=== PATIENT | female | born 1965 | race Two or more races ===

== ENCOUNTER 2020-01-01 09:12 | Emergency (ER) | payer OTHER ==
[~2020-01-01] VITALS: Ht 167.6 cm; Wt 72.6 kg
[2020-01-01] MEDS ORDERED: METHOCARBAMOL 500 MG TAB PO ONE (12:00)
[2020-01-01] MEDS ORDERED: ONDANSETRON ODT 4 MG TAB PO ONE (12:00)
[2020-01-01] MEDS ORDERED: KETOROLAC TROMETH 60MG/2ML VIAL IM ONE (12:00)
[2020-01-01 12:30] VITALS: BP 120/83
== END 2020-01-01 12:43 | disposition home or self-care (01) ==
LOC: ER 09:12 → EDBD 09:12 → ER 12:43
DX: R51.9 Headache, unspecified (principal)
CPT/HCPCS: 70450; 96372; 99284; J1885; Q0162

== ENCOUNTER → 2021-05-01 | Outpatient (CLI) | payer MEDICARE ==
[2021-05-01 11:48] LABS: Follicle Stimulating Hormone 16.11 IU/L (SEE BELOW); Leuteinizing Hormone 13.8 IU/L
== END | disposition home or self-care (01) ==
LOC: LAB 10:23
PROVIDERS: ATTEND Obstetrics & Gynecology
DX: N95.1 Menopausal and female climacteric states (principal); N39.0 Urinary tract infection, site not specified
CPT/HCPCS: 36415; 82670; 83001; 83002; 84403; 84443; 87086; 87088; 87186

== ENCOUNTER 2023-10-31 10:23 | Emergency (ER) | payer MEDICARE ==
[~2023-10-31] VITALS: Ht 162.6 cm; Wt 97.1 kg
[2023-10-31 11:04] VITALS: BP 119/74; PULSE 84; RESP 16; TEMP 97.8; O2SAT 98
[2023-10-31] MEDS ORDERED: ERY05OO OP (12:16)
[2023-10-31] MEDS ORDERED: AUG875T PO (12:16)
[2023-10-31] MEDS ORDERED: AZIT-43 PO (12:16)
[2023-10-31] MEDS: cefTRIAXone SOD 1,000 MG VL IM ONE (12:34)
== END 2023-10-31 12:47 | disposition home or self-care (01) ==
LOC: ER 10:23
DX: J40 Bronchitis, not specified as acute or chronic (principal); H10.9 Unspecified conjunctivitis; Z86.73 Personal history of transient ischemic attack (TIA), and cerebral infarction without residual deficits
CPT/HCPCS: 96372; 99283; J0696

== ENCOUNTER 2024-12-06 21:57 | Emergency (ER) | payer MEDICARE ==
[~2024-12-06] VITALS: Ht 160 cm; Wt 100.1 kg
[~2024-12-06 21:57] MED LIST: AUG875T PO; AZIT-43 PO; ERY05OO OP
[2024-12-06 23:15] LABS: Hematocrit 40.6 % (36.0-46.0); Hemoglobin 13.5 g/dL (12.2-16.2); Mean Corpuscular Hemoglobin 29.5 pg (28.0-32.0); Mean Corpuscular Volume 88.5 fL (80.0-100.0); Nucleated Red Blood Cells % 0.1 %
[2024-12-06 23:34] LABS: Alanine Aminotransferase 32 U/L (7-40); Albumin 4.3 g/dL (3.2-4.8); Alkaline Phosphatase 97 U/L (46-116); Anion Gap 9 (5-15); BUN/Creatinine Ratio 7.9 (10.0-20.0); Bilirubin, Total 0.6 mg/dL (0.2-1.0); Blood Urea Nitrogen 6 mg/dL (9-23); Calcium 9.3 mg/dL (8.7-10.4); Carbon Dioxide 24 mmol/L (20-31); Chloride 106 mmol/L (98-107); Glucose 122 mg/dL (74-106); Potassium 4.1 mmol/L (3.5-5.1); Sodium 139 mmol/L (136-145); Total Protein 7.3 g/dL (5.7-8.2)
--- NOTE | 2024-12-06 23:34 | DVH ---
Procedure: US PELVIC 12/06/2024 10:39 PM Indication: vag bleed pelvic pain Comparison: None Technique: Real-time grayscale and color images were obtained. FINDINGS: UTERUS: Anteverted, measuring 13.4 x 5.9 x 4.7 cm in length. There are multiple uterine fibroids, t he largest of which measures 4.2 cm. A calcified uterine fibroid is seen measuring up to 2.9 cm. ENDOMETRIAL STRIPE: 4 cm in thickness. Homogenous echotexture. No fluid in the endometrial canal. RIGH OVARY: Not visualized LEFT OVARY: Not visualized. CUL-DE-SAC: No significant fluid noted. OTHER: None. IMPRESSION: 1. Enlarged heterogeneous uterus with multiple fibroids. 2. The ovaries are not visualized.
--- NOTE | 2024-12-07 00:17 | ED.PDOC ---
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 Patient states she began experiencing vaginal bleeding earlier today, was checking pad every hour, had a spot of blood. Patient states she is also experiencing low back pain and suprapubic discomfort. Last OBGYN visit was about 1 year ago, had pap smear, negative results. Patient states she is compliant with hypertension medication, not complaint with HLD medication. Denies fever, chills, headache, dizziness, numbness/tingling, chest pain. No other symptoms or modifying factors present at this time. Initial Vitals BP: 137/79 HR: 82 RR: 18 O2: 93% Temp: 97.7 F Past Medical History: CVA, ovarian cyst, HTN, HLD Past Surgical History: Denies Social History: Denies ETOH, smoking, and drug use. Medications: unknown Allergies: NKDA SHIMKO: HPI: Poor Historian. Patient denies any pelvic pain or abdominal pain. Past Medical History: Past Surgical History: REVIEW OF SYSTEMS: CONSTITUTIONAL: Denies acute: fever, diaphoresis, chills, generalized weakness. HEAD: Denies acute: headache, photophobia Eyes: Denies acute: Double vision, vision loss, eye pain, eye discharge. EARS: Denies acute: tinnitus, hearing loss, ear discharge, ear pain, THROAT: Denies acute: sore throat, swelling, difficulty swallowing , pain with swallowing, change in voice. NECK: Denies acute: neck pain, neck swelling, stiff neck. HEART: Denies acute : chest pain, palpitations, LUNGS: Denies acute: SOB, wheezing, cough, hemoptysis ABDOMEN: Denies acute: abdominal pain, Nausea, Vomiting, diarrhea, melena , hematemesis, hematochezia SKIN: Denies acute: rash, redness, lesions, itchiness. EXTREMITIES: Denies acute: calf pain, numbness, tingling, weakness, denies pain in extremity. Denies acute: Low back pain. Neuro: Denies acute: focal neurological deficit, motor or sensory focal neurological deficit, tremors, seizure like activity, confusion, dizziness, change in mental status, loss of bowel or bladder function, cauda equina like symptoms. : Denies acute: dysuria, hematuria, flank pain, increase in urinary frequency. PSYCH: Denies acute: hallucination, suicidal ideation, homicidal ideation. FEMALE: Denies acute: , foul odor, unusual discharge. PHYSICAL EXAM: General: ----no----acute distress, awake and alert. Head: normocephalic, atraumatic. Neck: supple, trachea is midline, no swelling. Throat: Normal phonation. Eyes:, no erythema, no purulent discharge, no proptosis, no icterus. Heart: regular rate, regular rhythm, no significant murmur appreciated. Lungs: no apparent respiratory distress, Able to speak in full sentences. No wheezing, no rhonchi, no crackles. No stridors Clear to auscultation bilaterally. Abdomen: non tender to palpation, non distended, soft, no guarding, no rebound, + bowel sounds. Neuro: Awake, Alert, oriented to name, self, situation, follows commands GCS=15. Speech is normal. Skin: no petechia, no purpura, no cyanosis, non-pale, not jaundice. Lower extremities: --no - Pitting edema no deformity, no focal swelling, no calf TTP. Makes eye contact. moves all four extremities. Face: no apparent facial droop. ED COURSE: DISCLAIMER: This medical document was created using an electronic medical record system with voice recognition software and computerized dictation system. Although this document has been carefully reviewed, there might still be some phonetic and typographical errors. Occasional wrong-word or "sound-alike" substitutions may have occurred due to the inherent limitations of voice recognition software. These areas are purely typographical due to imperfections of the software programs and do not reflect any compromise in the patient's medical care. Please read the chart carefully and recognize, using context, where these substitutions have occurred. Chief Complaint: Abdominal Pain Time Seen by MD: 00:00 Reviewed Notes: Medications, Allergies Allergies: Coded Allergies: NO KNOWN ALLERGIES (Unverified , 01/01/20) Home Meds Active Scripts Erythromycin (Erythromycin) 5 Mg/Gm Oin, 1 APPLIC OP QID for 7 Days, #5 GRAMS 0 Refills Prov:JENNIFER BROWN [employer] BANK[employer] TELLER TRADER 10/31/23 Amoxicillin & Pot Clavulanate (AUGMENTIN TABLET) 875 Mg Tb, 875 MG PO BID for 7 Days, #14 TAB 0 Refills Prov:JENNIFER BROWN [employer]ANK[employer] TELLER TRADER 10/31/23 Azithromycin (Azithromycin) 250 Mg Tab, 250 MG PO DAILY MDD 500 for 5 Days, #6 TAB 0 Refills 2 TABLETS ORALLY ON DAY ONE, THEN 1 TABLET ORALLY DAILY FOR 4 DAYS Prov:JENNIFER BROWN [employer] B[employer] TELLER TRADER 10/31/23 Information Source: Patient, Spouse Mode of Arrival: Wheelchair Timing: Hours Prehospital treatment: None Severity: Moderate Vaginal Discharge: None Vaginal Lesions: None Bleeding Quality: Bright Red Vaginal Mass: None Onset Of Mass/Bleeding: Spontaneous Last Consensual [place]: Unknown Control: None Associated Signs and Symptoms: Vaginal Bleeding Past Medical History PAST MEDICAL HISTORY: Arthritis, CVA, High Lipids, HTN Surgical History: Surgical History (Other): brain surgery 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 Was a procedure done?: No Differential Diagnosis (ELECTRIC ORGAN CHECKER) Vaginal Bleeding: - Complete, - Incomplete, - Inevitable, - Missed, - Threatened, Abruptio Placentae, Blood Loss Anemia, Cervicitis, Dysmenorrhea, Ectopic , Hormonal, Menorrhagia, Menometrorrhagia, Menstrual Bleeding, Myomatous Uterus, PID, Placenta Previa, Precipitous Hct, Trauma, UTI, Vaginitis, Other (Differential diagnosis includes but not limited to DU B, menorrhea, metromenorrhagia, neoplasm, coagulopathy,, trauma, miscarriage, placenta previa, placental abruption, ) X-Ray, Labs, Meds, VS Vital Signs Date Time Temp Pulse Resp B/P (MAP) Pulse Ox O2 Delivery O2 Flow Rate FiO2 12/07/24 02:22 98.9 71 18 132/77 (95) 92 98.9 12/06/24 21:58 97.7 82 18 134/79 93 97.7 Lab Test 12/06/24 22:48 Range/Units White Blood Count 8.4 4.4-10.8 10^3/uL Red Blood Count 4.58 4.0-5.20 10^6/uL Hemoglobin 13.5 12.2-16.2 g/dL Hematocrit 40.6 36.0-46.0 % Mean Corpuscular Volume 88.5 80.0-100.0 fL Mean Corpuscular Hemoglobin 29.5 28.0-32.0 pg Mean Corpuscular Hemoglobin Concent 33.3 32.0-36.0 g/dL Red Cell Distribution Width 14.3 11.8-14.3 % Platelet Count 339 140-450 10^3/uL Mean Platelet Volume 7.2 6.9-10.8 fL Neutrophils (%) (Auto) 49.8 37.0-80.0 % Lymphocytes (%) (Auto) 39.4 10.0-50.0 % Monocytes (%) (Auto) 6.3 0.0-12.0 % Eosinophils (%) (Auto) 3.2 0.0-7.0 % Basophils (%) (Auto) 1.3 0.0-2.0 % Neutrophils # (Auto) 4.2 1.6-8.6 10 ^3/uL Lymphocytes # (Auto) 3.3 0.4-5.4 10 ^3/uL Monocytes # (Auto) 0.5 0-1.3 10 ^3/uL Eosinophils # (Auto) 0.3 0-0.8 10 ^3/uL Basophils # (Auto) 0.1 0-0.2 10 ^3/uL Nucleated Red Blood Cells 0.1 % Sodium Level 139 136-145 mmol/L Potassium Level 4.1 3.5-5.1 mmol/L Chloride Level 106 98-107 mmol/L Carbon Dioxide Level 24 20-31 mmol/L Anion Gap 9 5-15 Blood Urea Nitrogen 6 L 9-23 mg/dL Creatinine 0.76 0.550-1.02 mg/dL Glomerular Filtration Rate Calc 91 >90 mL/min BUN/Creatinine Ratio 7.9 L 10.0-20.0 Serum Glucose 122 H 74-106 mg/dL Lactic Acid Level 1.5 0.4-2.0 mmol/L Calcium Level 9.3 8.7-10.4 mg/dL Total Bilirubin 0.6 0.2-1.0 mg/dL Aspartate Amino Transferase (AST) 31 13-40 U/L Alanine Aminotransferase (ALT) 32 7-40 U/L Alkaline Phosphatase 97 46-116 U/L Total Protein 7.3 5.7-8.2 g/dL Albumin 4.3 3.2-4.8 g/dL [address] [address] Ph: [phone] DIAGNOSTIC IMAGING Diagnostic Imaging Report : [id number] Signed PATIENT: MICKEY LARIOSACCT: [id number] UNIT: [id number] : 1965 LOC: ER ROOM / BED: / AGE / SEX: 59 / F ADM STATUS: REG ER SERVICE 34 ORDERING PHYSICIAN: IHSAN LAMAR DO PROCEDURE(s): PELUS - PELVIC REASON: vag bleed pelvic pain ORDER NUMBER(s): [id number], ACCESSION NUMBER(s): [id number] Procedure: US PELVIC 12/06/2024 10:39 PM Indication: vag bleed pelvic pain Comparison: None Technique: Real-time grayscale and color images were obtained. FINDINGS: UTERUS: Anteverted, measuring 13.4 x 5.9 x 4.7 cm in length. There are mu ltiple uterine fibroids, the largest of which measures 4.2 cm. A calcified uterine fibroid is seen measuring up to 2.9 cm. ENDOMETRIAL STRIPE: 4 cm in thickness. Homogenous echotexture. No fluid in the endometrial canal. RIGH OVARY: Not visualized LEFT OVARY: Not visualized. CUL-DE-SAC: No significant fluid noted. OTHER: None. IMPRESSION: 1. Enlarged heterogeneous uterus with multiple fibroids. 2. The ovaries are not visualized. ATED BY: ANASTASIA AMATO MD DICTATED DATE/TIME: 12/06/242331 SIGNED BY: ANASTASIA AMATO MD SIGNED DATE/TIME: 12/06/242331 CC: [address] [id number] Ph: [phone] DIAGNOSTIC IMAGING Diagnostic Imaging Report : [id number] Signed PATIENT: WARREN LARIOST: [id number] UNIT: [id number] : 1965 LOC: ER ROOM / BED: / AGE / SEX: 59 / F ADM STATUS: REG ER SERVICE ORDERING PHYSICIAN: IHSAN LAMAR DO PROCEDURE(s): ABPL - CT AB PEL WO CON-NO ORAL OR IV REASON: VAG BLEEDW ORDER NUMBER(s): [id number], ACCESSION NUMBER(s): [id number] Exam: CT CT AB PEL WO CON-NO ORAL OR IV History: VAG BLEEDW Comparison Study: US PELVIC on DOS: 12/06/24 TECHNIQUE: Multidetector CT of the abdomen and pelvis was performed from lung bases to pubic symphysis. Imaging was performed without IV contrast. Axial, coronal, and sagittal multiplanar reformats were obtained from the axial data set by the technologist. RADIATION DOSE: CTDI vol 18.64 mGy. DLP 1187.2 mGy.cm Findings: Limited evaluation of the solid organs in the absence of IV contrast. Lungs: There is basilar atelectasis/scarring. Liver: Unremarkable. Spleen: Unremarkable. Pancreas: Unremarkable. Gallbladder: Unremarkable. Adrenals: Unremarkable Kidneys: Left renal cyst. No hydronephrosis. Pelvic Viscera: Calcified uterine fibroid. Vasculature: Unremarkable. Retroperitoneum: Unremarkable. Bowel: Colonic diverticulosis without CT evidence of diverticulitis. No bowel obstruction. The appendix is normal. Musculoskeletal: Unremarkable. Soft tissues: Unremarkable Impression: 1. No acute abdominopelvic abnormality. 2. Incidental findings as detailed. ATED BY: ANASTASIA AMATO MD DICTATED DATE/TIME: 12/07/24114 SIGNED BY: ANASTASIA AMATO MD SIGNED DATE/TIME: 12/07/24114 CC: Time of 1ST Reevaluation: 00:30 Reevaluation 1ST: Unchanged Patient Education/Counseling: Diagnosis, Treatment Family Education/Counseling: Diagnosis, Treatment Comments MDM: patient presented with the above HPI.--vaginal bleed----workup was initiated. patient was found with the above mentioned diagnosis. the following medications were ordered: please refer to order lists of meds and tests obtained by myself Dr. Lamar. Patient ED course and VS have been stabilized. Patient has been reassessed in the ED and remained in a stable condition. Pertinent incidental findings were discussed with the patient and/or family. Patient/family voices understanding and is agreeable with plan. Patient has been observed in the ED adequate length of time to insure improvement/stability. Escalation of care considered: Consideration of escalation to observation or admission Patient was DISCHARGED home in a stable condition. All the reports of any imaging studies that were ordered by myself were reviewed by myself. Departure 1 Departure Time of Disposition: 01:21 Impression: Primary Impression: Dysfunctional uterine bleeding Additional Impression: Uterine fibroid Disposition: HOME / SELF CARE / HOMELESS Condition: Stable Additional Instructions: Additional instructions: Please read all instructions provided in this packet carefully. You MUST follow-up with your primary care/family doctor in 1 to 2 days. If you are unable to see your primary care/family doctor, please return to our emergency room for re-assessment and re-evaluation in 1 to 2 days. Return to the emergency room here in our facility or to the nearest ER [facility] if your symptoms change or worsen. CONSULTATIONS: you MUST Follow-up for consultation as soon as possible with: Dr.-OB Sanchez doctor in 1-2 days. Please call for appointment You MUST call the consultants office yourself to make an appointment. You may need to arrange that through your insurance and/or your primary/family doctor. If you are unable to see the senior management consultant in 1 to 2 days, you must return to our emergency room (or any other ER of your choice) for re-assessment and re-evaluation. Adequate fluid hydration. Although you have been discharged from the Emergency Department, this does not mean that you have a "clean bill of health". No definitive diagnosis for your symptoms has been made today. It is possible that you are in the process of developing a serious illness. This is why you must return to the ED without fail if any new or worsening symptoms develop. Take daily iron supplements [id number] as instructed. Repeat CBC levels in 48-72 hours. Absolute pelvic rest. Below is a copy of your radiological report for follow up: [facility] [id number] [place] [address] Ph: [phone] DIAGNOSTIC IMAGING Diagnostic Imaging Report : [id number] Signed PATIENT: MICKEY LARIOS ACCT: [id number] UNIT: [id number] : 1965 LOC: ER ROOM / BED: / AGE / SEX: 59 / F ADM STATUS: REG ER SERVICE 34 ORDERING PHYSICIAN: IHSAN LAMAR DO PROCEDURE(s): PELUS - PELVIC REASON: vag bleed pelvic pain ORDER NUMBER(s): [id number], ACCESSION NUMBER(s): [id number] Procedure: US PELVIC 12/06/2024 10:39 PM Indication: vag bleed pelvic pain Comparison: None Technique: Real-time grayscale and color images were obtained. FINDINGS: UTERUS: Anteverted, measuring 13.4 x 5.9 x 4.7 cm in length. There are multiple uterine fibroids, the largest of which measures 4.2 cm. A calcified uterine fibroid is seen measuring up to 2.9 cm. ENDOMETRIAL STRIPE: 4 cm in thickness. Homogenous echotexture. No fluid in the endometrial canal. RIGH OVARY: Not visualized LEFT OVARY: Not visualized. CUL-DE-SAC: No significant fluid noted. OTHER: None. IMPRESSION: 1. Enlarged heterogeneous uterus with multiple fibroids. 2. The ovaries are not visualized. ATED BY: ANASTASIA AMATO MD DICTATED DATE/TIME: 12/06/242331 SIGNED BY: ANASTASIA AMATO MD SIGNED DATE/TIME: 12/06/242331 CC: [place] [address] Ph: [phone] DIAGNOSTIC IMAGING Diagnostic Imaging Report : [id number] Signed PATIENT: MICKEY LARIOS ACCT: [id number] UNIT: [id number] : 1965 LOC: ER ROOM / BED: / AGE / SEX: 59 / F ADM STATUS: REG ER SERVICE ORDERING PHYSICIAN: IHSAN LAMAR DO PROCEDURE(s): ABPL - CT AB PEL WO CON-NO ORAL OR IV REASON: VAG BLEEDW ORDER NUMBER(s): [id number], ACCESSION NUMBER(s): [id number] Exam: CT CT AB PEL WO CON-NO ORAL OR IV History: VAG BLEEDW Comparison Study: US PELVIC on DOS: 12/06/24 TECHNIQUE: Multidetector CT of the abdomen and pelvis was performed from lung bases to pubic symphysis. Imaging was performed without IV contrast. Axial, coronal, and sagittal multiplanar reformats were obtained from the axial data set by the technologist. RADIATION DOSE: CTDI vol 18.64 mGy. DLP 1187.2 mGy.cm Findings: Limited evaluation of the solid organs in the absence of IV contrast. Lungs: There is basilar atelectasis/scarring. Liver: Unremarkable. Spleen: Unremarkable. Pancreas: Unremarkable. Gallbladder: Unremarkable. Adrenals: Unremarkable Kidneys: Left renal cyst. No hydronephrosis. Pelvic Viscera: Calcified uterine fibroid. Vasculature: Unremarkable. Retroperitoneum: Unremarkable. Bowel: Colonic diverticulosis without CT evidence of diverticulitis. No bowel obstruction. The appendix is normal. Musculoskeletal: Unremarkable. Soft tissues: Unremarkable Impression: 1. No acute abdominopelvic abnormality. 2. Incidental findings as detailed. ATED BY: ANASTASIA AMATO MD DICTATED DATE/TIME: 12/07/24114 SIGNED BY: ANASTASIA AMATO MD SIGNED DATE/TIME: 12/07/24114 CC: Discharged With: Self, Spouse Critical Care Note Critical Care Time?: No I personally scribed for IHSAN LAMAR DO ([email or web address]) on 12/07/24 at 00:17. Electronically submitted by Neetu Pineda ([email or web address]). I personally scribed for IHSAN LAMAR DO ([email or web address]) on 12/07/24 at 01:23. Electronically submitted by Neetu Pineda ([email or web address]). IHSAN LAMAR DO Dec 07, 2024 00:17
--- NOTE | 2024-12-07 01:18 | DVH ---
Exam: CT CT AB PEL WO CON-NO ORAL OR IV History: VAG BLEEDW Comparison Study: US PELVIC on DOS: 12/06/24 TECHNIQUE: Multidetector CT of the abdomen and pelvis was performed from lung bases to pubic symphysi s. Imaging was performed without IV contrast. Axial, coronal, and sagittal multiplanar reformats were obtained from the axial data set by the technologist. RADIATION DOSE: CTDI vol 18.64 mGy. DLP 1187.2 mGy.cm Findings: Limited evaluation of the solid organs in the absence of IV contrast. Lungs: There is basilar atelectasis/scarring. Liver: Unremarkable. Spleen: Unremarkable. Pancreas: Unremarkable. Gallbladder: Unremarkable. Adrenals: Unremarkable Kidneys: Left renal cyst. No hydronephrosis. Pelvic Viscera: Calcified uterine fibroid. Vasculature: Unremarkable. Retroperitoneum: Unremarkable. Bowel: Colonic diverticulosis without CT evidence of diverticulitis. No bowel obstruction. The appen eliud is normal. Musculoskeletal: Unremarkable. Soft tissues: Unremarkable Impression: 1. No acute abdominopelvic abnormality. 2. Incidental findings as detailed.
[2024-12-07 02:22] VITALS: BP 132/77; PULSE 71; RESP 18; TEMP 98.9; O2SAT 92
== END 2024-12-07 02:32 | disposition home or self-care (01) ==
LOC: ER 22:02
DX: N93.8 Other specified abnormal uterine and vaginal bleeding (principal); D25.9 Leiomyoma of uterus, unspecified; I10 Essential (primary) hypertension; E78.5 Hyperlipidemia, unspecified; M19.90 Unspecified osteoarthritis, unspecified site; Z86.73 Personal history of transient ischemic attack (TIA), and cerebral infarction without residual deficits
CPT/HCPCS: 36415; 76856; 80053; 83605; 85025